=== PATIENT | male | born 1970 | race Caucasian/White ===

== ENCOUNTER 2020-11-17 11:12 | Emergency (ER) | payer OTHER ==
[2020-11-17] MEDS ORDERED: predniSONE 20 MG TAB ONE (12:06)
--- NOTE | 2020-11-17 12:31 | RAD ---
Chest one view HISTORY: Cough. COMPARISON: 07/06/2020. FINDINGS: Cardiac silhouette and pulmonary vasculature are unremarkable. Mediastinum is midline. No confluent airspace consolidation or evidence of pneumothorax. IMPRESSION : No abnormalities are demonstrated.
[2020-11-17 23:21] LABS: SARS-CoV-2 PCR by NAA Not Detected (NotDetected)
== END 2020-11-17 13:15 | disposition home or self-care (01) ==
LOC: BURERS 11:12
DX: J44.1 Chronic obstructive pulmonary disease with (acute) exacerbation (principal); Z20.822 Contact with and (suspected) exposure to COVID-19; F17.210 Nicotine dependence, cigarettes, uncomplicated
CPT/HCPCS: 71045; 87635; 87804; 93005; J7512; J7620; U0003; U0005